=== PATIENT | male | born 1965 | race Caucasian/White ===

== ENCOUNTER 2016-11-26 17:52 | Emergency (ER) | payer OTHER | END 2016-11-26 20:12 | disposition home or self-care (01) | LOC: FER 17:52 | DX: S50.02XA Contusion of left elbow, initial encounter (principal); I10 Essential (primary) hypertension; Z87.448 Personal history of other diseases of urinary system; Z87.09 Personal history of other diseases of the respiratory system; Z86.59 Personal history of other mental and behavioral disorders; V09.00XA Pedestrian injured in nontraffic accident involving unspecified motor vehicles, initial encounter | CPT/HCPCS: 73060; 73080; 99284 ==

== ENCOUNTER → 2016-12-02 | Day surgery (SDC) | payer OTHER ==
[2016-11-30 15:15] LABS: HCT 41.7 % (42.0-52.0); HGB 14.2 g/dl (13.2-18.0); MCH 28.7 pg (25.0-31.0); MCHC 34.1 g/dL (32.0-36.0); MCV 84.2 fL (78.0-100.0); MPV 9.7 fL (6.0-9.5); RBC 4.95 M/uL (4.70-6.00); RDW 12.8 % (11.5-14.0); WBC 6.3 K/uL (4.0-10.5)
[2016-11-30 15:32] LABS: ALBUMIN 4.2 g/dL (3.5-5.0); BILIRUBIN - TOTAL 0.3 mg/dL (0.1-1.0); CREATININE 0.9 mg/dL (0.7-1.2); POTASSIUM 3.9 mmol/L (3.5-5.1); TOTAL PROTEIN 7.2 g/dL (6.4-8.3)
== END | disposition home or self-care (01) ==
LOC: FAS 08:45
PROVIDERS: Orthopaedic Surgery
DX: M23.221 Derangement of posterior horn of medial meniscus due to old tear or injury, right knee (principal); M23.261 Derangement of other lateral meniscus due to old tear or injury, right knee; M17.11 Unilateral primary osteoarthritis, right knee; M23.41 Loose body in knee, right knee; M25.861 Other specified joint disorders, right knee; M25.761 Osteophyte, right knee; M79.4 Hypertrophy of (infrapatellar) fat pad; I25.2 Old myocardial infarction; D86.9 Sarcoidosis, unspecified
CPT/HCPCS: 36415; 71020; 80053; 93005; J2704; J3010; J7325

== ENCOUNTER → 2020-09-17 | Day surgery (SDC) | payer OTHER ==
[~2020-09-17] VITALS: Ht 177.8 cm; Wt 122.5 kg
[~2020-09-17] MED LIST: ASPIRIN EC81 MG PO; ASPIRIN81 MG PO; BUPROPION XL300 MG PO; FEOSOL325 MG PO; LISINOPRIL30 MG PO; MELOXICAM15 MG PO; MOTRIN600 MG PO; OMEPRAZOLE40 MG PO; PERCOCET 5-3251 EACH PO; SERTRALINE HCL100 MG PO; SPIRIVA RESPIMAT4 GM INH; SYMBICORT 16010.2 GM INH; THEOPHYLLINE 3300 MG PO; TYLENOL ARTHRI650 MG PO; VENTOLIN HFA18 GM INH; ZYRTEC10 M3 PO
[2020-09-17 13:03] LABS: HCT 42.8 % (42.0-52.0); MCH 28.5 pg (25.0-31.0); MCHC 32.7 g/dL (32.0-36.0); MPV 10.4 fL (6.0-9.5); RBC 4.92 M/uL (4.70-6.00); RDW 13.2 % (11.5-14.0)
[2020-09-17 13:25] LABS: ALBUMIN 3.9 g/dL (3.4-5.0); BILIRUBIN - TOTAL 0.5 mg/dL (0.2-1.0); BUN/CREAT RATIO (CALC) 16.7 RATIO; CREATININE 0.72 mg/dL (0.67-1.17); GLOBULIN (CALCULATION) 3.3 g/dL; POTASSIUM 3.7 mmol/L (3.5-5.1); TOTAL PROTEIN 7.2 g/dL (6.4-8.2)
== END | disposition home or self-care (01) ==
LOC: FAS 12:06
PROVIDERS: Orthopaedic Surgery
DX: S83.232A Complex tear of medial meniscus, current injury, left knee, initial encounter (principal); M17.12 Unilateral primary osteoarthritis, left knee; M25.862 Other specified joint disorders, left knee; K21.9 Gastro-esophageal reflux disease without esophagitis; J44.9 Chronic obstructive pulmonary disease, unspecified; I10 Essential (primary) hypertension; G47.30 Sleep apnea, unspecified; X58.XXXA Exposure to other specified factors, initial encounter; Z20.822 Contact with and (suspected) exposure to COVID-19; Z79.899 Other long term (current) drug therapy
CPT/HCPCS: 36415; 71045; 80053; 93005; J2250; J2405; J2704; J3010; J3490; J7120

== ENCOUNTER 2020-11-26 06:33 | Day surgery (SDC) | payer OTHER ==
[~2020-11-26] VITALS: Ht 175 cm; Wt 120.0 kg
[~2020-11-26 06:33] MED LIST changes: -ASPIRIN81 MG PO; -FEOSOL325 MG PO
[2020-11-26] MEDS ORDERED: PERCOCET 5-3251 EACH PO (07:09)
[2020-11-27 05:51] LABS: BASOPHIL 0.3 % (0-2); EOSINOPHIL 0.1 % (0-5); HGB 12.6 g/dl (13.2-18.0); LYMPHOCYTE 10.6 % (15-48); MCH 28.9 pg (25.0-31.0); MCHC 32.3 g/dL (32.0-36.0); MCV 89.4 fL (78.0-100.0); MONOCYTE 8.1 % (0-12); MPV 10.4 fL (6.0-9.5); NEUTROPHIL 79.6 % (41-80); NRBC 0; PLT 255 K/uL (150-400); RBC 4.36 M/uL (4.70-6.00); RDW 13.9 % (11.5-14.0); WBC 11.9 K/uL (4.0-10.5)
[2020-11-27 06:27] LABS: BUN/CREAT RATIO (CALC) 14.7 RATIO; CREATININE 0.95 mg/dL (0.67-1.17); POTASSIUM 4.1 mmol/L (3.5-5.1)
--- NOTE | 2020-11-27 08:51 | NUR ---
PT. D/C HOME WITH SPOUSE. PT. HAS AN APPT AT [facility] ON 11/28/20 @ 10:30 [facility] TO DELIVER A ROLLING WALKER UPON DISCHARGE.
[2020-11-27] MEDS ORDERED: ASPIRIN81 MG PO (10:43)
[2020-11-27] MEDS ORDERED: FEOSOL325 MG PO (10:43)
== END 2020-11-27 11:54 | disposition home or self-care (01) ==
LOC: FMS 06:33 → FAS 06:33 → FMS 09:22 → FAS 11-27 11:54
PROVIDERS: Orthopaedic Surgery
DX: M17.11 Unilateral primary osteoarthritis, right knee (principal); I10 Essential (primary) hypertension; I97.191 Other postprocedural cardiac functional disturbances following other surgery; J44.9 Chronic obstructive pulmonary disease, unspecified; F41.9 Anxiety disorder, unspecified; F32.9 Major depressive disorder, single episode, unspecified; I25.2 Old myocardial infarction; G47.30 Sleep apnea, unspecified; Z99.89 Dependence on other enabling machines and devices; Z79.891 Long term (current) use of opiate analgesic; Z79.82 Long term (current) use of aspirin; Z79.1 Long term (current) use of non-steroidal anti-inflammatories (NSAID); Z79.899 Other long term (current) drug therapy
CPT/HCPCS: 36415; 73560; 80048; 85025; 86850; 86900; 86901; 93005; 94010; 94640; 94760; 94762; 97110; 97162; 97166; 97530-GP; 97535; C1713; C1776; J0171; J0697; J1100; J1170; J1200; J1885; J2250; J2270; J2405; J2704; J2710; J2795; J3010; J7120

== ENCOUNTER 2021-06-03 06:40 | Day surgery (SDCO) | payer OTHER ==
[~2021-06-03] VITALS: Ht 175 cm; Wt 120.0 kg
[~2021-06-03 06:40] MED LIST changes: +ASPIRIN81 MG PO; +FEOSOL325 MG PO
[2021-06-04 05:26] LABS: BASOPHIL 0.6 % (0-2); EOSINOPHIL 0.6 % (0-5); HCT 38.1 % (42.0-52.0); HGB 12.5 g/dl (13.2-18.0); LYMPHOCYTE 9.5 % (15-48); MCH 29.2 pg (25.0-31.0); MCHC 32.8 g/dL (32.0-36.0); MONOCYTE 7.9 % (0-12); NEUTROPHIL 80.2 % (41-80); NRBC 0; PLT 198 K/uL (150-400); RBC 4.28 M/uL (4.70-6.00); RDW 13.2 % (11.5-14.0)
[2021-06-04 05:42] LABS: ALBUMIN 3.6 g/dL (3.4-5.0); BILIRUBIN - TOTAL 0.7 mg/dL (0.2-1.0); CREATININE 0.81 mg/dL (0.67-1.17); GLOBULIN (CALCULATION) 3.2 g/dL; TOTAL PROTEIN 6.8 g/dL (6.4-8.2)
--- NOTE | 2021-06-04 09:03 | NUR ---
PT. REQUESTED [facility] [employer] FOR OUTPT THERAPY. PT MADE HIS OWN APPT. AND IT IS 06/09/21 @ 1:30 P.M. PT. HAS HIS OWN ROLLING WALKER. PT. SIGNED CHOICE FORM.
--- NOTE | 2021-06-04 10:01 | NUR ---
FAXED [facility] THE FACE SHEET, ORDER AND OP REPORT TO [phone].
== END 2021-06-04 09:50 | disposition home or self-care (01) ==
LOC: FAS 06:40 → FMS 09:23 → FAS 15:43 → FMS 15:44
PROVIDERS: Nurse Practitioner; ADMIT Orthopaedic Surgery
DX: M17.12 Unilateral primary osteoarthritis, left knee (principal); I10 Essential (primary) hypertension; G47.33 Obstructive sleep apnea (adult) (pediatric); K21.9 Gastro-esophageal reflux disease without esophagitis; D86.9 Sarcoidosis, unspecified; I25.2 Old myocardial infarction; J44.9 Chronic obstructive pulmonary disease, unspecified; E78.5 Hyperlipidemia, unspecified; F41.9 Anxiety disorder, unspecified; F32.A Depression, unspecified; Z87.891 Personal history of nicotine dependence; Z79.01 Long term (current) use of anticoagulants; Z79.1 Long term (current) use of non-steroidal anti-inflammatories (NSAID); Z79.82 Long term (current) use of aspirin; Z79.899 Other long term (current) drug therapy
CPT/HCPCS: 36415; 73560; 80053; 85025; 86850; 86900; 86901; 94010; 94640; 97162; 97165; 97530-GP; 97535; C1713; C1776; G0378; J0171; J0697; J1170; J1885; J2175; J2250; J2270; J2405; J2550; J2704; J2795; J3010; J7120